=== PATIENT | male | born 1945 | race Caucasian/White ===

== ENCOUNTER → 2016-12-06 | Outpatient (CLI) | payer MEDICARE, OTHER ==
[2016-12-06 11:53] LABS: MEAN CORPUSCULAR HEMOGLOBIN 30.8 pg (27.0-33.0); MEAN CORPUSCULAR HGB CONC 34.5 g/dl (32.0-36.5); MEAN CORPUSCULAR VOLUME 89.5 fl (80.0-96.0); WHITE BLOOD COUNT 5.7 K/mm3 (4.0-10.0)
[2016-12-06 14:18] LABS: ALBUMIN 3.8 GM/DL (3.2-5.2); ALBUMIN/GLOBULIN RATIO 1.27 (1.00-1.93); ALKALINE PHOSPHATASE 77 U/L (45-117); ALT/SGPT 24 U/L (12-78); ANION GAP 4 MEQ/L (8-16); AST/SGOT 10 U/L (15-37); BILIRUBIN,TOTAL 0.6 MG/DL (0.2-1.0); BLOOD UREA NITROGEN 19 MG/DL (7-18); CALCIUM LEVEL 8.6 MG/DL (8.8-10.2); CARBON DIOXIDE LEVEL 29 MEQ/L (21-32); CHLORIDE LEVEL 105 MEQ/L (98-107); CHOLESTEROL LEVEL 184 MG/DL (<200); CREATININE FOR GFR 0.88 MG/DL (0.70-1.30); FREE T4 1.31 NG/DL (0.76-1.46); GLOMERULAR FILTRATION RATE > 60.0 (>42); GLUCOSE, FASTING 95 MG/DL (83-110); POTASSIUM SERUM 4.4 MEQ/L (3.5-5.1); SODIUM LEVEL 138 MEQ/L (136-145); TOTAL PROTEIN 6.8 GM/DL (6.4-8.2); TRIGLYCERIDES LEVEL 132 MG/DL (<150)
== END ==
LOC: M SMT 08:13
PROVIDERS: ATTEND Family Medicine
DX: E03.9 Hypothyroidism, unspecified (principal); I10 Essential (primary) hypertension

== ENCOUNTER → 2017-01-05 | Outpatient (CLI) | payer MEDICARE, OTHER | LOC: M SMT 10:48 | PROVIDERS: ATTEND Physician Assistant Medical | DX: Z85.46 Personal history of malignant neoplasm of prostate (principal) | CPT/HCPCS: 36415; G0103 ==

== ENCOUNTER → 2017-10-06 | Outpatient (CLI) | payer MEDICARE, OTHER ==
[2017-10-06 12:16] LABS: BASO % 0.4 % (0.0-1.0); EOS # 0.1 10^3/uL (0.0-0.50); EOS % 2.2 % (0.0-3.0); HEMATOCRIT 44.9 % (42.0-52.0); HEMOGLOBIN 15.4 g/dl (13.5-17.5); IMMATURE GRANULOCYTE % 0.4 % (0-3.0); LYMPH # 1.8 10^3/uL (1.5-4.5); LYMPH % 33.5 % (24.0-44.0); MEAN CORPUSCULAR HEMOGLOBIN 29.7 pg (27.0-33.0); MEAN CORPUSCULAR HGB CONC 34.3 g/dl (32.0-36.5); MEAN CORPUSCULAR VOLUME 86.7 fl (80.0-96.0); MONO # 0.5 10^3/uL (0.0-0.8); MONO % 9.6 % (0.0-5.0); NEUTROPHILS # 2.9 10^3/uL (1.8-7.7); NEUTROPHILS % 53.9 % (36.0-66.0); PLATELET COUNT, AUTOMATED 242 10^3/uL (150-450); RED BLOOD COUNT 5.18 10^6/uL (4.30-6.10); WHITE BLOOD COUNT 5.4 10^3/uL (4.0-10.0)
[2017-10-06 12:54] LABS: ALBUMIN 3.9 GM/DL (3.2-5.2); ALBUMIN/GLOBULIN RATIO 1.22 (1.00-1.93); ALKALINE PHOSPHATASE 90 U/L (45-117); ALT/SGPT 27 U/L (12-78); ANION GAP 5 MEQ/L (8-16); AST/SGOT 15 U/L (7-37); BILIRUBIN,TOTAL 0.7 MG/DL (0.2-1.0); BLOOD UREA NITROGEN 19 MG/DL (7-18); CALCIUM LEVEL 8.7 MG/DL (8.8-10.2); CARBON DIOXIDE LEVEL 29 MEQ/L (21-32); CHLORIDE LEVEL 108 MEQ/L (98-107); CHOLESTEROL LEVEL 186 MG/DL (<200); CHOLESTEROL RISK RATIO 5.314 (<5); CREATININE FOR GFR 0.91 MG/DL (0.70-1.30); FREE T3 2.9 PG/ML (2.2-4.0); FREE T4 1.15 NG/DL (0.76-1.46); GLOMERULAR FILTRATION RATE > 60.0 (>42); GLUCOSE, FASTING 98 MG/DL (70-100); HDL CHOLESTEROL 35 MG/DL (>40); LDL CHOLESTEROL 131.2 MG/DL (<100); NON-HDL-C 151 MG/DL; POTASSIUM SERUM 4.3 MEQ/L (3.5-5.1); SODIUM LEVEL 142 MEQ/L (136-145); TOTAL PROTEIN 7.1 GM/DL (6.4-8.2); TRIGLYCERIDES LEVEL 99 MG/DL (<150)
== END ==
LOC: M WUC 09:45
DX: E03.9 Hypothyroidism, unspecified (principal); I10 Essential (primary) hypertension
CPT/HCPCS: 84443

== ENCOUNTER → 2018-01-09 | Outpatient (CLI) | payer MEDICARE, OTHER ==
[2018-01-09 17:55] LABS: PROSTATIC SPECIFIC AG MONITOR < 0.01 NG/ML (< 4.0)
== END ==
LOC: M WUC 11:48
DX: Z85.46 Personal history of malignant neoplasm of prostate (principal)
CPT/HCPCS: 84153

== ENCOUNTER → 2018-09-19 | Outpatient (CLI) | payer MEDICARE, OTHER ==
[2018-09-19 12:58] LABS: BASO % 0.7 % (0.0-1.0); EOS % 0.9 % (0.0-3.0); HEMATOCRIT 42.2 % (42.0-52.0); LYMPH # 1.3 10^3/uL (1.5-4.5); LYMPH % 28.7 % (24.0-44.0); MEAN CORPUSCULAR HEMOGLOBIN 29.1 pg (27.0-33.0); MEAN CORPUSCULAR HGB CONC 33.2 g/dl (32.0-36.5); MEAN CORPUSCULAR VOLUME 87.7 fl (80.0-96.0); MONO # 0.6 10^3/uL (0.0-0.8); MONO % 12.2 % (0.0-5.0); NEUTROPHILS # 2.6 10^3/uL (1.8-7.7); NEUTROPHILS % 57.1 % (36.0-66.0); PLATELET COUNT, AUTOMATED 264 10^3/uL (150-450); RED BLOOD COUNT 4.81 10^6/uL (4.30-6.10); WHITE BLOOD COUNT 4.6 10^3/uL (4.0-10.0)
[2018-09-19 13:24] LABS: ALBUMIN 3.3 GM/DL (3.2-5.2); ALT/SGPT 28 U/L (12-78); BILIRUBIN,TOTAL 0.5 MG/DL (0.2-1.0); BLOOD UREA NITROGEN 16 MG/DL (7-18); CALCIUM LEVEL 8.4 MG/DL (8.8-10.2); CARBON DIOXIDE LEVEL 30 MEQ/L (21-32); CHLORIDE LEVEL 105 MEQ/L (98-107); CHOLESTEROL LEVEL 163 MG/DL (<200); CHOLESTEROL RISK RATIO 4.657 (<5); GLOMERULAR FILTRATION RATE > 60.0 (>42); GLUCOSE, FASTING 104 MG/DL (70-100); HDL CHOLESTEROL 35 MG/DL (>40); LDL CHOLESTEROL 99 MG/DL (<100); NON-HDL-C 128 MG/DL; POTASSIUM SERUM 3.9 MEQ/L (3.5-5.1); SODIUM LEVEL 142 MEQ/L (136-145); TOTAL PROTEIN 6.4 GM/DL (6.4-8.2); TRIGLYCERIDES LEVEL 145 MG/DL (<150)
== END ==
LOC: M WUC 08:57
PROVIDERS: ATTEND Family Medicine
DX: I10 Essential (primary) hypertension (principal)

== ENCOUNTER → 2019-01-03 | Outpatient (CLI) | payer MEDICARE, OTHER ==
[~2019-01-03] MED LIST: AMLO5TAB6 PO; FLUT50SP33; IBUP200C25 PO; LOSA100T5 PO; MELA5TAB21 PO; SYNT137T7 PO
== END ==
LOC: M LAB 08:33
PROVIDERS: ATTEND Urology
DX: R97.20 Elevated prostate specific antigen [PSA] (principal)

== ENCOUNTER → 2019-01-12 | Outpatient (CLI) | payer MEDICARE, OTHER ==
[2019-01-12 14:33] LABS: CREATININE FOR GFR 0.84 MG/DL (0.70-1.30); GLOMERULAR FILTRATION RATE > 60.0 (>42)
== END ==
LOC: M LAB 13:42
PROVIDERS: ATTEND Physician Assistant
DX: Z85.46 Personal history of malignant neoplasm of prostate (principal)

== ENCOUNTER → 2019-04-11 | Outpatient (CLI) | payer MEDICARE, OTHER ==
[2019-04-11 12:37] LABS: ALBUMIN 3.8 GM/DL (3.2-5.2); ALT/SGPT 28 U/L (12-78); BILIRUBIN,TOTAL 0.7 MG/DL (0.2-1.0); BLOOD UREA NITROGEN 16 MG/DL (7-18); CALCIUM LEVEL 9.2 MG/DL (8.8-10.2); CARBON DIOXIDE LEVEL 30 MEQ/L (21-32); CHLORIDE LEVEL 108 MEQ/L (98-107); CHOLESTEROL LEVEL 119 MG/DL (<200); CHOLESTEROL RISK RATIO 3.216 (<5); CREATININE FOR GFR 0.76 MG/DL (0.70-1.30); FREE T3 2.8 PG/ML (2.2-4.0); FREE T4 1.09 NG/DL (0.76-1.46); GLOMERULAR FILTRATION RATE > 60.0 (>42); GLUCOSE, FASTING 99 MG/DL (70-100); HDL CHOLESTEROL 37 MG/DL (>40); LDL CHOLESTEROL 64 MG/DL (<100); NON-HDL-C 82 MG/DL; POTASSIUM SERUM 4.2 MEQ/L (3.5-5.1); SODIUM LEVEL 143 MEQ/L (136-145); TOTAL PROTEIN 6.9 GM/DL (6.4-8.2); TRIGLYCERIDES LEVEL 89 MG/DL (<150)
== END ==
LOC: M WUC 10:07
PROVIDERS: ATTEND Family Medicine
DX: E03.9 Hypothyroidism, unspecified (principal); I10 Essential (primary) hypertension

== ENCOUNTER 2019-04-23 08:28 | Day surgery (SDC) | payer MEDICARE, OTHER ==
[~2019-04-23] VITALS: Ht 170.2 cm; Wt 102.5 kg
[~2019-04-23 08:28] MED LIST changes: +LIDOCAINE 2% INJ 100 MG/5 ML SDV (FOR ANES.) As Ordered ONE; +NS 1,000 ML IV ONE
[2019-04-23] MEDS ORDERED: PROPOFOL 200 MG/20 ML VIAL As Ordered ONE (08:50)
--- NOTE | 2019-04-23 10:01 | ROOR ---
Patient Name: Dina Duggan Procedure Date: 04/23/2019 9:42 AM Date of : 1945 Age: 74 Room: [facility] Gender: Male Note Status: Finalized Procedure: Total Colonoscopy to Cecum Indications: Abnormal CT of the GI tract Providers: Tr Salmeron MD Referring MD: Ottoniel Monte MD Requesting Provider: Medicines: Monitored Anesthesia Care Complications: No immediate complications. Procedure: Pre-Anesthesia Assessment: - The heart rate, respiratory rate, oxygen saturations, blood pressure, adequacy of pulmonary ventilation, and response to care were monitored throughout the procedure. The Colonoscope was introduced through the anus and advanced to the cecum, identified by appendiceal orifice and ileocecal valve. The colonoscopy was performed without difficulty. The patient tolerated the procedure well. The quality of the bowel preparation was excellent. Findings: The perianal and digital rectal examinations were normal. Non-bleeding internal hemorrhoids were found during retroflexion. The hemorrhoids were small and Grade I (internal hemorrhoids that do not prolapse). Multiple small and large-mouthed diverticula were found in the recto-sigmoid colon, sigmoid colon, descending colon and transverse colon. The exam was otherwise without abnormality on direct and retroflexion views. Impression: - Non-bleeding internal hemorrhoids. - Diverticulosis in the recto-sigmoid colon, in the sigmoid colon, in the descending colon and in the transverse colon. - The examination was otherwise normal on direct and retroflexion views. - No specimens collected. - The exam was otherwise normal to the cecum. Recommendation: - Patient has a contact number available for emergencies. The signs and symptoms of potential delayed complications were discussed with the patient. Return to normal activities tomorrow. Written discharge instructions were provided to the patient. - High fiber diet. - Discharge patient to home. - Continue present medications. - Repeat colonoscopy for symptoms only. - Return to referring physician. - The findings and recommendations were discussed with the patient's family. Tr Salmeron MD Tr Salmeron MD 04/23/2019 10:00:29 AM Electronically signed by Tr Salmeron MD Number of Addenda: 0 Note Initiated On: 04/23/2019 9:42 AM Estimated Blood Loss: Estimated blood loss: none.
[2019-04-23 10:28] VITALS: BP 142/67
== END 2019-04-23 10:36 | disposition home or self-care (01) ==
LOC: M OPP 08:28
PROVIDERS: ATTEND Internal Medicine Gastroenterology
DX: K64.0 First degree hemorrhoids (principal); K57.30 Diverticulosis of large intestine without perforation or abscess without bleeding; R93.3 Abnormal findings on diagnostic imaging of other parts of digestive tract; Z79.899 Other long term (current) drug therapy

== ENCOUNTER 2019-08-06 10:48 | Inpatient (IN) | payer MEDICARE, OTHER ==
[~2019-08-06] VITALS: Ht 170.2 cm; Wt 104.6 kg
[2019-08-06] MEDS: LEVOTHYROXINE 137MCG TABLET (0.137MG) PO SCH (06:00)
[2019-08-06] MEDS: FLUTICASONE PROP 0.05% NASAL SPRAY 16 GM (FLONASE) NARES SCH ×3 (09:00→22:06)
[~2019-08-06 10:48] MED LIST changes: -LIDOCAINE 2% INJ 100 MG/5 ML SDV (FOR ANES.) As Ordered ONE; -NS 1,000 ML IV ONE
[2019-08-06] MEDS ORDERED: MECL-58 (10:58)
--- NOTE | 2019-08-06 11:46 | REP ---
Portable chest, 11:30 a.m., single AP view with the patient upright: Comparison is 08/16/2010. The lung lassiter are clear and unchanged. There are no focal infiltrates or pleural effusions. Cardiac size is upper normal for portable positioning. The lisa, mediastinum, skeletal structures are unremarkable. There is a small hiatal hernia, unchanged from an abdomen/pelvis CT of 03/06/2013. Impression: No acute cardiopulmonary findings. Electronically Signed by Naga Childress MD 08/06/2019 11:38 A
[2019-08-06 11:51] LABS: INR 1.1; PROTHROMBIN TIME 13.9 SECONDS (11.8-14.0)
[2019-08-06 11:52] LABS: PARTIAL THROMBOPLASTIN TIME 37.3 SECONDS (25.0-38.4)
[2019-08-06 11:59] LABS: BASO % 0.7 % (0.0-1.0); EOS # 0.1 10^3/uL (0.0-0.5); EOS % 1.7 % (0.0-3.0); HEMOGLOBIN 14.3 g/dl (13.5-17.5); LYMPH # 1.1 10^3/uL (1.5-5.0); LYMPH % 37.5 % (24.0-44.0); MEAN CORPUSCULAR HEMOGLOBIN 30.6 pg (27.0-33.0); MEAN CORPUSCULAR HGB CONC 34.9 g/dl (32.0-36.5); MEAN CORPUSCULAR VOLUME 87.8 fl (80.0-96.0); MONO # 0.3 10^3/uL (0.0-0.8); MONO % 10.8 % (0.0-5.0); NEUTROPHILS # 1.5 10^3/uL (1.5-8.5); PLATELET COUNT, AUTOMATED 138 10^3/uL (150-450); RED BLOOD COUNT 4.67 10^6/uL (4.30-6.10)
[2019-08-06 12:27] LABS: ALBUMIN 3.4 GM/DL (3.2-5.2); ALT/SGPT 20 U/L (12-78); BILIRUBIN,DIRECT 0.2 MG/DL (0.0-0.2); BILIRUBIN,TOTAL 0.5 MG/DL (0.2-1.0); BLOOD UREA NITROGEN 17 MG/DL (7-18); CALCIUM LEVEL 8.9 MG/DL (8.8-10.2); CARBON DIOXIDE LEVEL 27 MEQ/L (21-32); CHLORIDE LEVEL 107 MEQ/L (98-107); CK-MB VALUE MASS 1.4 NG/ML (<3.6); CPK CREATINE PHOSPHOKINASE 92 U/L (39-308); CREATININE FOR GFR 0.92 MG/DL (0.70-1.30); FREE T4 0.89 NG/DL (0.76-1.46); GLOMERULAR FILTRATION RATE > 60.0 (>42); GLUCOSE, FASTING 114 MG/DL (70-100); LIPASE 105 U/L (73-393); MB/CK RELATIVE INDEX 1.52 (< OR =4); POTASSIUM SERUM 3.9 MEQ/L (3.5-5.1); SODIUM LEVEL 140 MEQ/L (136-145); TOTAL PROTEIN 6.5 GM/DL (6.4-8.2); TROPONIN I < 0.02 NG/ML (< 0.10)
[2019-08-06] MEDS ORDERED: ASPIRIN 325 MG TAB PO ONE (13:00)
[2019-08-06] MEDS ORDERED: ATORVASTATIN 20 MG TAB PO ONE (13:00)
--- NOTE | 2019-08-06 13:18 | REP ---
CT brain without contrast: History: Persistent dizziness. No comparison CT study. CT findings: Digital preliminary metal moulder radiograph is unremarkable. The bony calvarium is intact. There is mild vascular calcification in the distal internal carotid arteries. Visualized paranasal sinuses are clear. No intraorbital abnormalities appreciated. On soft tissue window settings, there is a focal area of encephalomalacia in the left parietal lobe consistent with a previous cerebral infarct. Encephalomalacia is well-defined. This is compatible with an old cortical infarction. No recent infarct is apparent. No hemorrhage, mass, extra-axial fluid collection, or midline shift is seen. 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 Vascular calcification and minimal diffuse atrophy. Otherwise negative. Electronically Signed by Jae Irvin MD 08/06/2019 05:42 P
[2019-08-06] MEDS ORDERED: ATOR1TAB21 PO (13:33)
[2019-08-06] MEDS ORDERED: IBUPROFEN 200 MG TAB PO PRN (13:45)
[2019-08-06] MEDS ORDERED: NS 1,000 ML IV SCH (14:00)
[2019-08-06 15:06] VITALS: BP 168/79
[2019-08-06] MEDS ORDERED: PROHANCE 279.3MG/ML 15ML VIAL (A9576) As Ordered ONE (15:19)
[2019-08-06] MEDS ORDERED: PROHANCE 279.3MG/ML 5ML VIAL (A9576) As Ordered ONE (15:19)
[2019-08-06] MEDS: amLODIPine 5 MG TAB PO SCH (16:38)
--- NOTE | 2019-08-06 17:15 | REP ---
MRI brain without contrast: History: CVA. Comparison head CT study is from earlier today. Technique: Axial and sagittal imaging planes are utilized for T1 and T2-weighted scans. Sequences include spin-echo, fast spin echo, FLAIR, and diffusion weighted sequences. Findings: No bony calvarial lesion is seen. Craniocervical junction and upper cervical cord are normal in appearance. There is no MR evidence of significant paranasal sinus disease. No intraorbital abnormality is seen. There is no evidence of intracranial hemorrhage. Diffusion weighted scans demonstrate areas of acute appearing restricted diffusion in the right occipital lobe and watershed area of the right posterior parietal lobe. On the left, there is restricted diffusion in a subacute pattern in the left parietal lobe. This corresponds with a low-density area on CT. These areas are consistent with acute and subacute ischemia. No extra-axial fluid collection is seen. No masses observed. No midline shift. Ventricular system is unremarkable. Impression: Multifocal areas of restricted diffusion in a watershed distribution bilaterally affecting the parietal lobes and right occipital lobe. Subacute infarct pattern in the left parietal lobe corresponding to the low density area seen on CT. No hemorrhage is noted. Electronically Signed by Jae Irvin MD 08/06/2019 05:46 P
--- NOTE | 2019-08-06 17:18 | REP ---
MR angiography the brain without contrast: History: CVA. Technique: 3-D [id number] MR angiography of the brain is acquired in the usual fashion and maximal intensity projection images were generated in rotational format about the vertical and horizontal axes. In addition, source axial T1-weighted images are viewed in cine mode. MR angiographic findings: The distal left vertebral artery appears to end in a pica. The right vertebral artery is dominant and widely patent. Basilar artery is unremarkable. There is persistent origin of the right posterior cerebral artery. Posterior cerebral and superior cerebellar arteries are intact and symmetric. The distal internal carotid arteries are unremarkable bilaterally. Anterior and middle cerebral arteries appear intact. No vessel cutoff is seen. There is no evidence of diaz aneurysm or arteriovenous malformation. Impression: Persistent origin right posterior cerebral artery which is a common normal variant. Otherwise unremarkable MRA angiography of the brain. Electronically Signed by Jae Irvin MD 08/06/2019 05:46 P
--- NOTE | 2019-08-06 17:21 | REP ---
MR angiography carotid arteries without and with IV gadolinium: History: CVA. Gadolinium enhancement dose: 25 mL of intravenous ProHance. MR angiographic findings: Pre contrast study shows symmetric common carotid arteries bilaterally. The common carotid artery bifurcations appear widely patent. Postcontrast images show tortuosity of the thoracic aorta and great vessel origins but no evidence of great vessel artery stenosis. There is mild plaquing in the carotid bifurcation on the left with less than 50% category narrowing. The internal carotid arteries are somewhat tortuous bilaterally. The cervical segments of the vertebral arteries are widely patent. The left distal vertebral artery is small compared to the right. Impression: No significant abnormality. Less than 50% atherosclerotic narrowing of the left proximal ICA. Arterial tortuosity. No high-grade stenosis or occlusion seen. Electronically Signed by Jae Irvin MD 08/06/2019 05:46 P
--- NOTE | 2019-08-06 20:14 | HPE ---
DATE OF ADMISSION: 08/06/2019 CHIEF COMPLAINT: Dizziness. HISTORY OF PRESENTING ILLNESS: This is a 74-year-old male with a history of hypertension, never smoked in his life, hypothyroidism, prostate cancer, status post prostatectomy with radiation, presents to the emergency room with complaints of persistent dizziness. Patient has had on and off dizziness since June when he was seen at [facility] and was diagnosed with sinusitis. 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 Patient was very cautious to drive home and called his that he was heading home since he was not feeling well. He described the dizziness as the environment swirling around him. Patient had no gait ataxia, diplopia, blurred vision, or scotomas. [place] and was able to drive home without incident. When he got home, he calmed down. He has a blood pressure machine but did not check it. Around July 31, patient had another episode when he felt very dizzy but did not pass out. He had to be very cautious, and he did not see anyone at that time. No CT of the head was done in June at [facility]. He was given antibiotics, which he completed. Last night, while patient was asleep, he woke up very sweaty in the middle of the night around 3:00 a.m. He rolled over to his and then he felt very dizzy like there was a "little white cloud over me." He laid there, woke up his , and called out to her, "Joselin Olivera." He then got up, walked over to the living room, yelled out again to her and she found him on the sofa sitting and trying to lie down. Patient sat on the couch while the came over. He was very carefully walking. He did not have any slurring of speech, facial asymmetry. He was able to recognize her quickly, he was answering appropriately with no word finding difficulties. He complained of his left arm hurting, which lasted for a few minutes and abated. The patient had noticed for the past week that he was having some inability to read from a distance. He had recently gotten new glasses, but did not think that this was due to this. He otherwise denied any palpitations. He did feel some lightheadedness and dizziness but did not pass out. Did not notice any scotomas. Patient had no upper or lower extremity weakness. Denied any upper or lower extremity paresthesias or numbness. In the ER, he was found to have subacute left parietal infarct, minimal diffuse atrophy, otherwise negative. He was given aspirin 325 mg and one Lipitor 20 mg. MRI of the brain showed subacute bilateral parietal and occipital lobe infarcts, subacute infarct pattern left parietal lobe corresponding to the low density area on the CT. No hemorrhage was seen. On the left has restricted diffusion subacute pattern in the left parietal lobe. Dr. Rey was consulted and recommended a bubble study and hypercoags. A bubble study, carotid MRI shows no significant abnormality, no high-grade stenosis or occlusions. Seen less than 50% atherosclerotic narrowing of the left proximal internal carotid artery (ICA). Hospitalist was called to admit for bilateral parietal lobe CVA and right occipital lobe CVA. PAST MEDICAL HISTORY: Hypertension. Prostate cancer. Hypothyroidism. PAST SURGICAL HISTORY: Prostatectomy with radiation. ALLERGIES: No known drug allergies or food allergies. 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 Lives with his . Patient has 5-6 steps to get into the front door, has a raised ranch about 7 steps. No recreational drug use. No alcohol use. No cigarette use in the past. HOME MEDICATIONS: - fluticasone one spray daily as needed - losartan-hydrochlorothiazide 100-25 one tablet nightly - Norvasc 5 mg daily - atorvastatin 20 mg every evening - ibuprofen 400 mg as needed - levothyroxine 137 mcg daily REVIEW OF SYSTEMS: Per history of the present illness. 12-point system otherwise negative. FAMILY HISTORY: Father with coronary artery disease, myocardial infarction ([place]), age 74. Mother age 75 with a stroke. Sister with a stroke at age of 73 with diabetes. PHYSICAL EXAMINATION: Temperature 98.4, pulse 62, respiratory rate 17, blood pressure 168/79, 100% on room air. Generally, face is symmetric. Tongue is midline. Speech is fluent. Pupils are round, reactive to light and accommodation. Extraocular muscles are intact. Normocephalic, atraumatic. Able to speak in full sentences. No jugular venous distention (JVD), thyromegaly or cervical lymphadenopathy. Lungs are clear to auscultation. No wheezing, rales or rhonchi. Heart: S1, S2, sinus rhythm. Abdomen is soft, nontender, nondistended. Positive bowel sounds. Extremities: No cyanosis, clubbing or pitting edema. Neurologic: Patient's face is symmetric. Tongue is midline. No pronator drift. Some dysmetria on [id number]-[id number] testing. No peripheral visual loss. Patient has motor function 5/5 times four extremities. No sensory disturbance. EKG: Sinus rhythm, ventricular rate of 57, intraventricular conduction delay, nonspecific T-wave changes. [employer] coma scale is 15/15. Mini mental status is 21/30. Patient was unable to do serial 7s, only answered to 93. He knew the month, year, day of the week - saying it was Tuesday, season as spring. He was able to state that he is at [facility] on the 4th floor, [facility]. Unable to do immediate recall of three objects. Patient was unable to spell the word world and said it was drlow. Able to name two objects. Could not recall three objects. Able to name a cup and his wedding band. Able to repeat no ifs, ands or buts. Able to complete a three-stage command, read and correctly follow commands. He was able to write a full sentence and wrote down Birdie went outdoors. Able to copy design of two intersecting shapes, all angles were present, and they were overlapping over one angle. LABORATORY DATA: White count 3, hemoglobin 14, hematocrit 41, platelet count 138, 49% neutrophils. Sedimentation rate was 34. PT 13, PTT 37, INR 1.1. Sodium 140, potassium 3.9, chloride 107, bicarbonate 27, BUN 17, creatinine 0.92, glucose of 114, calcium 8.9, total bilirubin 0.5, direct bilirubin 0.2, AST 13, ALT 20, alkaline phosphatase 91, total CK 92, MB fraction 1.4, troponin less than 0.02, albumin 3.4, total protein 6.5, lipase 105, TSH 5.02, free T4 is 0.89, rheumatoid factor less than 10. CE is pending. MRI of the brain: Bilateral parietal lobe watershed distribution and right occipital lobe restricted diffusion subacute infarct. ASSESSMENT AND PLAN: A 74-year-old male with a history of prostate cancer, status post prostatectomy and radiation, hypertension, hypothyroidism, presents with complaints of dizziness starting July 20, first evaluated at an outlying hospital with complaints of sinus congestion, diagnosed with sinusitis. No CT was ever done at that time. Now presents with bilateral CVA and recurrent complaints of dizziness. ACUTE ISSUE: 1. Subacute bilateral parietal lobe and right occipital lobe CVA, subacute. Patient will be admitted and evaluated with a bubble study, hypercoagulable (hypercoag) workup. Continue on aspirin and Lipitor. Telemetry, rule out atrial fibrillation and ARU evaluation. Lipid panel in the morning. Patient has never smoked cigarettes. Deep vein thrombosis (DVT) prophylaxis with compression stockings for now and Lovenox in the morning. Allow for permissive hypertension. Neurology has been consulted. Neurologic (neuro) checks every 4 hours. 2. Hypertension. Will hold the patient's blood pressure medications for permissive hypertension. May decrease to 120 in the morning. 3. History of prostate cancer. Status post prostatectomy and radiation. No acute complaints. 4. Hypothyroidism. Resume on home dose of Synthroid. 5. Code status is a FULL CODE.
--- NOTE | 2019-08-06 20:39 | ECGEPIP ---
[facility] - ED Test Date: 2019-08-06 Pat Name: JOHN BROOKS Department: Room: [place] [address] Gender: Male Neurology Technologist: jefferson : 1945 Requested By: Jimmy Xavier Order Number: [id number] Reading MD: Kath Cuevas Measurements Intervals [place] Rate: 57 P: 26 MD: 129 QRS: -6 QRSD: 112 T: -12 QT: 407 QTc: 398 Interpretive Statements SINUS BRADYCARDIA WITH OCCASIONAL VENTRICULAR PREMATURE COMPLEXES MODERATE INTRAVENTRICULAR CONDUCTION DELAY NONSPECIFIC T-WAVE ABNORMALITY NO PRIOR Electronically Signed on 08-06-2019 20:39:28 EDT by Kath Cuevas
[2019-08-06] MEDS ORDERED: ATORVASTATIN 20 MG TAB PO SCH ×2 (21:00)
[2019-08-06 22:00] VITALS: BP_SYST 122; BP_SYST 151; BP_SYST 154; BP_SYST 157; BP_DIAS 58; BP_DIAS 75; BP_DIAS 76; BP_DIAS 77
[2019-08-07 06:00] VITALS: BP 160/80
[2019-08-07] MEDS: LEVOTHYROXINE 137MCG TABLET (0.137MG) PO SCH (06:26)
[2019-08-07 07:05] LABS: HEMATOCRIT 39.9 % (42.0-52.0); MEAN CORPUSCULAR HEMOGLOBIN 30.9 pg (27.0-33.0); MEAN CORPUSCULAR HGB CONC 35.1 g/dl (32.0-36.5); MEAN CORPUSCULAR VOLUME 88.1 fl (80.0-96.0); PLATELET COUNT, AUTOMATED 144 10^3/uL (150-450); RED BLOOD COUNT 4.53 10^6/uL (4.30-6.10); WHITE BLOOD COUNT 2.9 10^3/uL (4.0-10.0)
[2019-08-07 07:18] LABS: INR 1.09; PROTHROMBIN TIME 13.8 SECONDS (11.8-14.0)
[2019-08-07 07:19] LABS: PARTIAL THROMBOPLASTIN TIME 40.1 SECONDS (25.0-38.4)
[2019-08-07 07:22] LABS: D-DIMER QUANT 1005.2 ng/ml (<500)
[2019-08-07 07:36] LABS: ALBUMIN 3.3 GM/DL (3.2-5.2); ALT/SGPT 22 U/L (12-78); BILIRUBIN,TOTAL 0.7 MG/DL (0.2-1.0); BLOOD UREA NITROGEN 15 MG/DL (7-18); CALCIUM LEVEL 8.8 MG/DL (8.8-10.2); CARBON DIOXIDE LEVEL 26 MEQ/L (21-32); CHLORIDE LEVEL 109 MEQ/L (98-107); CHOLESTEROL LEVEL 114 MG/DL (<200); CHOLESTEROL RISK RATIO 3.931 (<5); GLOMERULAR FILTRATION RATE > 60.0 (>42); GLUCOSE, FASTING 100 MG/DL (70-100); HDL CHOLESTEROL 29 MG/DL (>40); LDL CHOLESTEROL 60 MG/DL (<100); NON-HDL-C 85 MG/DL; POTASSIUM SERUM 3.9 MEQ/L (3.5-5.1); SODIUM LEVEL 141 MEQ/L (136-145); TOTAL PROTEIN 6.2 GM/DL (6.4-8.2); TRIGLYCERIDES LEVEL 123 MG/DL (<150)
[2019-08-07] MEDS: FLUTICASONE PROP 0.05% NASAL SPRAY 16 GM (FLONASE) NARES SCH ×2 (08:28→20:10)
[2019-08-07] MEDS: amLODIPine 5 MG TAB PO SCH (08:28)
--- NOTE | 2019-08-07 08:39 | CR ---
DATE OF CONSULTATION: 08/07/2019 REFERRING PROVIDER: Lydia Bateman MD REASON FOR CONSULTATION: Stroke. The patient is a 74-year-old male with past medical history significant for hypertension and hypothyroidism presenting with chief complaint of at least a week of symptoms of dizziness. The patient had episodes including left-sided diaphoresis and sweating, shortness breath. The patient was admitted to the hospital. CT scan showed right occipital lobe ischemic stroke. The MRI shows bilateral parietal lobe and right occipital lobe subacute left parietal ischemic strokes. The patient had negative MR angiography of the brain other than persistent origin of the right [employer] artery. MRA was negative for the carotids. The patient had a thyroid-stimulating hormone (TSH) of 5.02. The patient will be admitted for complete stroke workup. At the present time, he does not have any visual field deficits on confrontational testing. The patient denies any weakness or numbness or ataxia at this time. At times, he gets dizzy. It seems he was seen at [facility], was told that he has an ear infection, sent home. The patient has been placed on aspirin 324 mg here in the emergency room (ER). He will benefit by remaining on aspirin 81 mg daily. He has history of prostate cancer and history of hematuria. He is followed by urologist in [place], [place]. The patient will have to watch out for further hematuria, which has not been an issue as of late. The patient is currently on atorvastatin 20 mg daily started by his primary care provider. He patient was told his cholesterol panel was very good. He is not a diabetic, and he is not a smoker. REVIEW OF SYSTEMS: 14-point review of systems obtained and is negative except as per history of present illness (HPI). ALLERGIES: NO KNOWN DRUG ALLERGIES. HOME MEDICATIONS: - Lipitor 20 mg by mouth daily - Synthroid 137 mcg by mouth daily - Norvasc 5 mg by mouth daily SOCIAL HISTORY: The patient denies use of any tobacco, alcohol or illicit drugs. FAMILY HISTORY: Mother with stroke. MEDICAL HISTORY: Hypertension, hypothyroidism, obesity. PAST SURGICAL HISTORY: None. PHYSICAL EXAMINATION: Blood pressure is 168/75, pulse rate 63, respiratory rate is 18, temperature is 98.2 degrees Fahrenheit, oxygenation 97% on room air. The patient is awake, alert, oriented to person, place and time. Speech, language comprehension, and repetition are intact. Current height 5 feet 7 inches, current weight is 106 kg. Extraocular movements are intact in all directions without nystagmus. Sensation V1, V2, V3 is intact to light touch without asymmetry. There is no visual field deficits. Hearing is subjectively equal to finger rub. Tongue is midline. Palate elevates symmetrically. There is no pronator drift. Strength is 5/5 including bilateral deltoids, biceps, triceps, iliopsoas of both 4+. Quadriceps are 5/5, tibialis anterior are 5/5. Romberg testing is negative. Deep tendon reflexes are 1s at the Achilles, 2s at the patellas, 2s in the upper extremities. Sensory is intact to light touch in all four extremities. There is no gross ataxia or dysmetria on exam. ASSESSMENT 74-year-old male with presentation of dizziness persisting for at least a week with findings of bilateral parietal and left occipital strokes thought to be subacute in nature. PLAN: 1. Recommend aspirin 81 mg by mouth daily, continuation of atorvastatin 20 mg by mouth nightly. Recommend echocardiogram with bubble study. Recommend telemetry monitoring. 2. Recommend the patient have an outpatient visual field assessment before resuming driving. 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 3. The patient will need to followup with his urologist if he develops any hematuria while on aspirin. The patient has an upcoming appointment in [place], [place] within this month to see his urologist. History obtained from both the patient the patient's and children.
[2019-08-07] MEDS ORDERED: ASPIRIN 81 MG CHEW TABLET PO ONE (09:00)
[2019-08-07] MEDS ORDERED: ASPIRIN 81 MG CHEW TABLET PO SCH (09:00)
[2019-08-07 10:16] LABS: DRVV SCREEN 79.1 SEC
--- NOTE | 2019-08-07 11:23 | ECHO ---
DATE OF PROCEDURE: 08/06/2019 DATE OF : 1945 AGE: 74 HEIGHT: 67 inches WEIGHT: 233 pounds BODY SURFACE AREA: 2.16 m2 INPATIENT: 4 [facility] room 4227 REFERRING PHYSICIAN: Dr. Lydia Bateman INDICATION: CVA - cardiac source of embolic material query. MEASUREMENTS: 2-D Measurements: RV: 4.4 cm LV: 4.7 cm Septum: 1.4 cm Posterior wall: 1.4 cm Aortic root: 3.6 cm LA: 4.0 cm LVEF: 75% Doppler Measurements: AV: 1.38 m/sec LVOT: 0.95 m/sec LVOT diameter: 2.2 cm MV - E: 96, A: 92, EA ratio: 1 Early mitral deceleration time: 180 ms E prime medial: 6.5, A prime medial: 11, E/E prime lateral: 9 Average E/E prime ratio: 12.4/PCWP 17.2 mmHg PV: 0.85 m/sec Pulmonary artery acceleration time: 109 ms PASP: 35 mmHg IVC: 1.7 cm COMMENTS: Sinus bradycardia without intraventricular conduction disturbance. Somewhat technically challenging in light of the patient's body habitus but diagnostically useful information was still obtained. M-mode and two-dimensional echocardiography was performed with pulsed, continuous wave, color flow and tissue Doppler studies. Moderate concentric left ventricle hypertrophy with hyperkinetic wall motion. Mildly dilated left atrium with grade 2 LV diastolic dysfunction and mildly elevated estimated mean left atrial pressure. Mildly dilated right heart chambers with normal wall motion and Doppler evidence of mild pulmonary hypertension. Normal IVC size and collapse against an elevated central venous pressure at this time. Asymmetrical thickening with reduced motion of the noncoronary cusp of the aortic valve. The other cusps appeared to move and be of normal thickness. No evidence of left ventricle outflow tract obstruction and at most a trace aortic insufficiency. Normal aortic dimensions. Normal appearing and functioning mitral valve. Normal appearing and functioning tricuspid valve. No separate intracardiac mass or pericardial effusion. A preliminary report of this study will be relayed directly to Dr. Bateman.
[2019-08-07 14:00] VITALS: BP 149/70
--- NOTE | 2019-08-07 17:36 | IPN ---
DATE: 08/07/2019 Patient is seen and examined at the bedside. Chart has been reviewed this morning. Patient still complains of dizziness. When he woke this morning in the middle of the night, felt dizzy on the bed. He tried to adjust the elevation of the bed but felt that it got worse and when he tried to move around too much. Prior to the evening he was able to walk back and forth from his bed to the bathroom with a walker without any assistance and appeared to be stable on his feet. Patient had no recurrent episodes of dizziness later on in the morning. Telemetry remains unremarkable. Remains in sinus rhythm. MRI of the brain shows bilateral parietal cerebrovascular accident (CVA) and right occipital CVA. Echocardiogram has no patent foramen ovale (PFO). Per Dr. Dugan, patient has slight fullness in the aortic valve area, which may be concerning for endocarditis. He recommended two sets of blood cultures, which have been obtained. Patient had not had any fevers or chills. He still has occasional sinus congestion but completed a full course of antibiotics as outpatient. PHYSICAL EXAMINATION: Temperature 98.2, pulse 66, respiratory rate 19, blood pressure 160/80, 95% on room air. GENERAL: Patient is awake, alert, oriented to person, place, and time. Able to state the date, 2019 in July, and he is at [facility] in [place]. Face is symmetric. Tongue is midline. No jugular venous distention (JVD). No thyromegaly. LUNGS: Clear to auscultation. No wheezes, rales, or rhonchi. HEART: S1, S2, sinus rhythm. ABDOMEN: Obese, soft, nontender, nondistended. Positive bowel sounds. EXTREMITIES: No clubbing, cyanosis, or pitting edema. NEUROLOGIC: Motor function is 5/5 times four extremities. No sensory disturbance. No dysmetria on lmnhso-lb-hxof testing. Tongue is midline. Laboratory data and imaging studies have been reviewed. ASSESSMENT AND PLAN: A 74-year-old male with a history of hypertension, prostate cancer (CA), status post prostatectomy and radiation, hypertension, hypothyroidism, presented with persistent dizziness, which all started July 20 and again July 31. Finally admitted August 05 for bilateral subacute parietal lobe cerebrovascular accident (CVA). IMPRESSION: 1. Subacute bilateral parietal lobe and right occipital lobe CVA. Patient has had a full workup. No significant carotid stenosis. Echo shows no patent foramen ovale (PFO). Patient is on aspirin 81 and Lipitor 20 at bedtime. 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 2. Currently hypertension. May resume on home medications at lower doses and monitor patient's response. 3. History of prostate CA, status post prostatectomy and radiation. 4. Hypothyroidism, on Synthroid. 5. Code status. Full code. Defer to neurology regarding further workup and discharge plans.
[2019-08-07] MEDS ORDERED: ATORVASTATIN 20 MG TAB PO SCH (21:00)
[2019-08-07 22:00] VITALS: BP 147/68
[2019-08-08] MEDS: LEVOTHYROXINE 137MCG TABLET (0.137MG) PO SCH (05:34)
[2019-08-08 06:00] VITALS: BP 148/68
[2019-08-08 07:04] LABS: HEMOGLOBIN 13.7 g/dl (13.5-17.5); MEAN CORPUSCULAR HEMOGLOBIN 30.1 pg (27.0-33.0); MEAN CORPUSCULAR HGB CONC 34.3 g/dl (32.0-36.5); MEAN CORPUSCULAR VOLUME 87.9 fl (80.0-96.0); PLATELET COUNT, AUTOMATED 165 10^3/uL (150-450); RED BLOOD COUNT 4.55 10^6/uL (4.30-6.10); WHITE BLOOD COUNT 2.6 10^3/uL (4.0-10.0)
[2019-08-08 07:21] LABS: BLOOD UREA NITROGEN 15 MG/DL (7-18); CALCIUM LEVEL 8.5 MG/DL (8.8-10.2); CARBON DIOXIDE LEVEL 28 MEQ/L (21-32); CHLORIDE LEVEL 107 MEQ/L (98-107); CREATININE FOR GFR 0.87 MG/DL (0.70-1.30); GLOMERULAR FILTRATION RATE > 60.0 (>42); GLUCOSE, FASTING 116 MG/DL (70-100); POTASSIUM SERUM 4.1 MEQ/L (3.5-5.1); SODIUM LEVEL 141 MEQ/L (136-145)
[2019-08-08] MEDS ORDERED: ASPIRIN 81 MG CHEW TABLET PO SCH (09:00)
[2019-08-08] MEDS ORDERED: ASPI81CH8 PO (10:03)
[2019-08-08 10:07] VITALS: BP 149/67
[2019-08-08] MEDS: amLODIPine 5 MG TAB PO SCH (10:07)
[2019-08-08] MEDS: FLUTICASONE PROP 0.05% NASAL SPRAY 16 GM (FLONASE) NARES SCH (10:08)
--- NOTE | 2019-08-08 10:55 | IPNPDOC ---
Subjective Date Seen The patient was seen on 08/08/19. Subjective Chief Complaint/HPI Dina is up walking in the hallway with walker. He is ambulating steady w/ standby assist only, but continues to experience vertigo and some short-term memory loss per Mrs Urban. Family members are at the bedside and are upset that the neurologist had not seen him yesterday, and want an etiology for his stroke. They want him transferred to [facility], but I've indicated to them that there is no need for hospital to hospital transfer and that his stroke workup is nearly complete with the exception of a RHONDA. They have declined RHONDA and wish to be discharged so they can travel to [facility] and acquire a second opinion. Objective Physical Examination General Exam: Positive: Alert, Cooperative, No Acute Distress Eye Exam: Positive: Conjunctiva & lids normal; Negative: Sclera icteric ENT Exam: Positive: Atraumatic, Mucous membr. moist/pink Chest Exam: Positive: Clear to auscultation Heart Exam: Positive: Rate Normal Telemetry: Positive: No significant arrhythmia Extremity Exam: Negative: Clubbing, Cyanosis, Edema Neuro Exam: Positive: Normal Gait, Normal Speech, Normal Tone Psych Exam: Positive: Mental status NL, Mood NL Assessment /Plan Assessment # Subacute bilateral parietal lobe and right occipital lobe CVA. # Hypertension # Hyperlipidemia - declines RHONDA with preference to discharged so he can seek a second opinion at [facility] - continue asa + atorvastatin - LDL < 70 - hypercoagulable panel pending - will need RHONDA as outpatient - outpatient PT/OT for vestibular therapy - Ophthalmology referral as outpatient for visual field testing - F/u with neurology in 2 weeks - BP controlled - Echo, Carotid, and MRA reviewed and all are reported as normal - f/u with PCP in 1 week - resume norvasc 5 mg daily, # Hypothyroidism - continue Synthroid. # Leukopenia - blood cultures are negative to date, I contacted microbiology lab - procalcitonin is pending - I have low suspicion for acute infection - will need f/u with PCP Plan/VTE VTE Prophylaxis Ordered?: Yes VTE Exclusion Mechanical Proph: N/A:VTE Prophy Ordered VTE Exclusion Pharmacological: Other (ambulatory) VS, I&O, 24H, Fishbone Vital Signs/I&O Vital Signs Date Time Temp Pulse Resp B/P (MAP) Pulse Ox O2 Delivery O2 Flow Rate FiO2 08/08/19 10:07 70 149/67 08/08/19 06:00 98.0 18 97 08/07/19 14:00 Room Air I&O- Last 24 Hours up to 6 AM 08/08/19 06:00 Intake Total 1431 ml Output Total 1575 ml Balance -144 ml Laboratory Data 24H LABS Laboratory Tests 2 08/07/19 11:33: Erythrocyte Sedimentation Rate 36H, C-Reactive Protein, Quantitative < 0.30 08/08/19 06:23: Nucleated Red Blood Cells % (auto) 0.0, Anion Gap 6L, Glomerular Filtration Rate > 60.0, Calcium Level 8.5L CBC/BMP Laboratory Tests 08/08/19 06:23 Microbiology Microbiology 08/07/19 Blood Culture, Received Pending 08/07/19 Blood Culture, Received Pending SANDIP BRUNNER MD Aug 08, 2019 10:42
[2019-08-08 14:07] LABS: ANTINUCLEAR ANTIBODIES DIRECT Negative (Negative)
[2019-08-11 00:11] LABS: HEXAGONAL PHASE PHOSPHOLIPID 42 sec (0-11)
== END 2019-08-08 11:11 | disposition home or self-care (01) | DRG 66 ==
LOC: M ED 10:48 → M ED INP 13:31 → ENRESERV 14:14 → M MSPAV 15:05
PROVIDERS: ADMIT General Practice; ATTEND Internal Medicine
DX: I63.59 Cerebral infarction due to unspecified occlusion or stenosis of other cerebral artery (principal); R42 Dizziness and giddiness; I10 Essential (primary) hypertension; E03.9 Hypothyroidism, unspecified; Z85.46 Personal history of malignant neoplasm of prostate; Z92.3 Personal history of irradiation; Z79.899 Other long term (current) drug therapy; D72.819 Decreased white blood cell count, unspecified

== ENCOUNTER → 2019-11-21 | Outpatient (REF) | payer MEDICARE, OTHER ==
[~2019-11-21] MED LIST changes: +AMLO1TAB24 PO; -AMLO5TAB6 PO; +ASPI81CH8 PO; +ATOR1TAB21 PO; +MECL-58
[2019-11-21 15:24] LABS: HEMATOCRIT 37.5 % (42.0-52.0); HEMOGLOBIN 12.9 g/dl (13.5-17.5); MEAN CORPUSCULAR HEMOGLOBIN 30.7 pg (27.0-33.0); MEAN CORPUSCULAR HGB CONC 34.4 g/dl (32.0-36.5); MEAN CORPUSCULAR VOLUME 89.3 fl (80.0-96.0); PLATELET COUNT, AUTOMATED 205 10^3/uL (150-450); WHITE BLOOD COUNT 2.6 10^3/uL (4.0-10.0)
[2019-11-21 15:34] LABS: BLOOD UREA NITROGEN 26 MG/DL (7-18); CARBON DIOXIDE LEVEL 27 MEQ/L (21-32); CHLORIDE LEVEL 106 MEQ/L (98-107); CREATININE FOR GFR 1.08 MG/DL (0.70-1.30); GLOMERULAR FILTRATION RATE > 60.0 (>42); GLUCOSE, FASTING 96 MG/DL (70-100); POTASSIUM SERUM 3.5 MEQ/L (3.5-5.1); SODIUM LEVEL 142 MEQ/L (136-145)
== END ==
LOC: M LABDRAWC 11:23
PROVIDERS: ATTEND Nurse Practitioner
DX: I25.119 Atherosclerotic heart disease of native coronary artery with unspecified angina pectoris (principal); Z79.02 Long term (current) use of antithrombotics/antiplatelets

== ENCOUNTER → 2019-11-27 | Outpatient (CLI) | payer MEDICARE, OTHER ==
[~2019-11-27] MED LIST changes: -AMLO1TAB24 PO; +AMLO5TAB6 PO
[2019-11-27 11:19] LABS: BASO % 0.9 % (0.0-1.0); EOS % 0.9 % (0.0-3.0); HEMATOCRIT 36.1 % (42.0-52.0); HEMOGLOBIN 12.4 g/dl (13.5-17.5); LYMPH # 0.9 10^3/uL (1.5-5.0); LYMPH % 42.5 % (24.0-44.0); MEAN CORPUSCULAR HEMOGLOBIN 30.3 pg (27.0-33.0); MEAN CORPUSCULAR HGB CONC 34.3 g/dl (32.0-36.5); MEAN CORPUSCULAR VOLUME 88.3 fl (80.0-96.0); MONO # 0.4 10^3/uL (0.0-0.8); MONO % 16.4 % (0.0-5.0); NEUTROPHILS % 39.3 % (36.0-66.0); PLATELET COUNT, AUTOMATED 230 10^3/uL (150-450); RED BLOOD COUNT 4.09 10^6/uL (4.30-6.10); WHITE BLOOD COUNT 2.2 10^3/uL (4.0-10.0)
[2019-11-27 12:04] LABS: NEUTROPHILS # 0.9 10^3/uL (1.5-8.5)
== END ==
LOC: M LAB 10:46
PROVIDERS: ATTEND Family Medicine
DX: D72.819 Decreased white blood cell count, unspecified (principal); D64.9 Anemia, unspecified

== ENCOUNTER → 2019-12-24 | Outpatient (REF) | payer MEDICARE, OTHER ==
[~2019-12-24] MED LIST changes: +AMLO1TAB24 PO; -AMLO5TAB6 PO
== END ==
LOC: M WUC 10:03
PROVIDERS: ATTEND Internal Medicine Cardiovascular Disease
DX: E78.5 Hyperlipidemia, unspecified (principal); I25.119 Atherosclerotic heart disease of native coronary artery with unspecified angina pectoris; Z86.73 Personal history of transient ischemic attack (TIA), and cerebral infarction without residual deficits; Z79.899 Other long term (current) drug therapy

== ENCOUNTER → 2020-01-15 | Outpatient (REF) | payer MEDICARE, OTHER ==
[2020-03-03 21:58] LABS: EOS % 1.4 % (0.0-3.0); HEMATOCRIT 33.9 % (42.0-52.0); LYMPH # 0.9 10^3/uL (1.5-5.0); LYMPH % 44.8 % (24.0-44.0); MEAN CORPUSCULAR HEMOGLOBIN 29.9 pg (27.0-33.0); MEAN CORPUSCULAR HGB CONC 32.4 g/dl (32.0-36.5); MEAN CORPUSCULAR VOLUME 92.1 fl (80.0-96.0); MONO # 0.5 10^3/uL (0.0-0.8); MONO % 21.4 % (0.0-5.0); NEUTROPHILS % 31.4 % (36.0-66.0); PLATELET COUNT, AUTOMATED 229 10^3/uL (150-450); RED BLOOD COUNT 3.68 10^6/uL (4.30-6.10); WHITE BLOOD COUNT 2.1 10^3/uL (4.0-10.0)
[2020-03-03 22:03] LABS: NEUTROPHILS # 0.7 10^3/uL (1.5-8.5)
== END ==
LOC: M WUC 16:00
PROVIDERS: ATTEND Internal Medicine Hematology & Oncology
DX: D72.819 Decreased white blood cell count, unspecified (principal); D64.9 Anemia, unspecified

== ENCOUNTER → 2020-01-18 | Outpatient (CLI) | payer MEDICARE, OTHER ==
[2020-01-18 19:53] LABS: APPEARANCE, URINE CLOUDY (CLEAR); BACTERIA, URINE AUTO NEGATIVE (NEGATIVE); BILIRUBIN, URINE AUTO NEGATIVE (NEGATIVE); BLOOD, URINE BLOOD 3+ (NEGATIVE); COLOR, URINE RED (YELLOW); GLUCOSE, URINE (UA) AUTO NEGATIVE (NEGATIVE); KETONE, URINE AUTO NEGATIVE (NEGATIVE); LEUKOCYTE ESTERASE, URINE AUTO NEGATIVE (NEGATIVE); NITRITE, URINE AUTO NEGATIVE (NEGATIVE); PROTEIN, URINE AUTO 2+ mg/dL (NEGATIVE); RBC, URINE AUTO TNTC /HPF (0-3); SPECIFIC GRAVITY URINE AUTO 1.012 (1.002-1.035); SQUAMOUS EPITHELIAL CELL UR AU 3 /HPF (0-6); WBC, URINE AUTO TNTC /HPF (0-3)
== END ==
LOC: M WUC 15:58
PROVIDERS: ATTEND Physician Assistant
DX: R31.0 Gross hematuria (principal)

== ENCOUNTER → 2020-03-05 | Outpatient (CLI) | payer MEDICARE, OTHER | LOC: M LABSMTC 10:45 | PROVIDERS: ATTEND Internal Medicine Hematology & Oncology | DX: Z20.828 Contact with and (suspected) exposure to other viral communicable diseases (principal) | CPT/HCPCS: C9803; U0003 ==

== ENCOUNTER → 2020-07-14 | Outpatient (CLI) | payer MEDICARE, OTHER ==
[2020-07-14 10:59] LABS: HEMATOCRIT 38.6 % (42.0-52.0); HEMOGLOBIN 12.8 g/dl (13.5-17.5); MEAN CORPUSCULAR HEMOGLOBIN 30.2 pg (27.0-33.0); MEAN CORPUSCULAR HGB CONC 33.2 g/dl (32.0-36.5); PLATELET COUNT, AUTOMATED 189 10^3/uL (150-450); RED BLOOD COUNT 4.24 10^6/uL (4.30-6.10); WHITE BLOOD COUNT 2.9 10^3/uL (4.0-10.0)
[2020-07-14 11:38] LABS: ALBUMIN 3.5 GM/DL (3.2-5.2); ALT/SGPT 38 U/L (12-78); BILIRUBIN,TOTAL 0.6 MG/DL (0.2-1.0); BLOOD UREA NITROGEN 25 MG/DL (7-18); CALCIUM LEVEL 8.9 MG/DL (8.8-10.2); CARBON DIOXIDE LEVEL 29 MEQ/L (21-32); CHLORIDE LEVEL 107 MEQ/L (98-107); CHOLESTEROL LEVEL 105 MG/DL (<200); CHOLESTEROL RISK RATIO 2.692 (<5); CREATININE FOR GFR 0.81 MG/DL (0.70-1.30); FREE T3 2.4 PG/ML (2.2-4.0); FREE T4 1.24 NG/DL (0.76-1.46); GLOMERULAR FILTRATION RATE > 60.0 (>42); GLUCOSE, FASTING 90 MG/DL (70-100); HDL CHOLESTEROL 39 MG/DL (>40); LDL CHOLESTEROL 55 MG/DL (<100); NON-HDL-C 66 MG/DL; POTASSIUM SERUM 4.2 MEQ/L (3.5-5.1); SODIUM LEVEL 141 MEQ/L (136-145); THYROID STIMULATING HORMONE 0.595 uIU/ML (0.358-3.740); TOTAL PROTEIN 6.5 GM/DL (6.4-8.2); TRIGLYCERIDES LEVEL 57 MG/DL (<150)
== END ==
LOC: M LAB 09:42
PROVIDERS: ATTEND Family Medicine
DX: E03.9 Hypothyroidism, unspecified (principal); I10 Essential (primary) hypertension; D72.819 Decreased white blood cell count, unspecified

== ENCOUNTER → 2020-12-16 | Outpatient (REF) | payer MEDICARE, OTHER | LOC: M LABDRAWC 15:58 | PROVIDERS: ATTEND Physician Assistant | DX: Z85.46 Personal history of malignant neoplasm of prostate (principal) ==

== ENCOUNTER → 2021-01-08 | Outpatient (CLI) | payer MEDICARE, OTHER ==
[2021-01-08 11:43] LABS: ALBUMIN 3.5 GM/DL (3.2-5.2); BILIRUBIN,DIRECT 0.2 MG/DL (0.0-0.2); BILIRUBIN,TOTAL 0.7 MG/DL (0.2-1.0); CHOLESTEROL RISK RATIO 2.7 (<5); TOTAL PROTEIN 6.5 GM/DL (6.4-8.2)
== END ==
LOC: M WUC 08:27
DX: E78.5 Hyperlipidemia, unspecified (principal); I25.119 Atherosclerotic heart disease of native coronary artery with unspecified angina pectoris; Z86.73 Personal history of transient ischemic attack (TIA), and cerebral infarction without residual deficits; Z79.899 Other long term (current) drug therapy

== ENCOUNTER → 2021-08-27 | Outpatient (CLI) | payer MEDICARE, OTHER ==
[2021-08-27 13:31] LABS: BLOOD UREA NITROGEN 20 MG/DL (7-18); CALCIUM LEVEL 9.1 MG/DL (8.8-10.2); CARBON DIOXIDE LEVEL 26 MEQ/L (21-32); CHLORIDE LEVEL 106 MEQ/L (98-107); CREATININE FOR GFR 0.85 MG/DL (0.70-1.30); GLOMERULAR FILTRATION RATE > 60.0 (>42); GLUCOSE, FASTING 91 MG/DL (70-100); POTASSIUM SERUM 4.1 MEQ/L (3.5-5.1); SODIUM LEVEL 138 MEQ/L (136-145)
== END ==
LOC: M WUC 10:02
PROVIDERS: ATTEND Internal Medicine Cardiovascular Disease
DX: R00.1 Bradycardia, unspecified (principal); I10 Essential (primary) hypertension; Z79.82 Long term (current) use of aspirin

== ENCOUNTER → 2021-08-27 | Outpatient (CLI) | payer MEDICARE, OTHER ==
[2021-08-27 12:46] LABS: HEMATOCRIT 42.9 % (42.0-52.0); HEMOGLOBIN 14.8 g/dl (13.5-17.5); MEAN CORPUSCULAR HEMOGLOBIN 30.1 pg (27.0-33.0); MEAN CORPUSCULAR HGB CONC 34.5 g/dl (32.0-36.5); MEAN CORPUSCULAR VOLUME 87.4 fl (80.0-96.0); PLATELET COUNT, AUTOMATED 244 10^3/uL (150-450); RED BLOOD COUNT 4.91 10^6/uL (4.30-6.10)
[2021-08-27 14:10] LABS: ALBUMIN 3.8 GM/DL (3.2-5.2); ALT/SGPT 43 U/L (12-78); BILIRUBIN,TOTAL 0.9 MG/DL (0.2-1.0); BLOOD UREA NITROGEN 20 MG/DL (7-18); CALCIUM LEVEL 9.1 MG/DL (8.8-10.2); CARBON DIOXIDE LEVEL 26 MEQ/L (21-32); CHLORIDE LEVEL 105 MEQ/L (98-107); CHOLESTEROL LEVEL 115 MG/DL (<200); CHOLESTEROL RISK RATIO 3.285 (<5); CREATININE FOR GFR 0.82 MG/DL (0.70-1.30); FREE T4 1.12 NG/DL (0.76-1.46); GLOMERULAR FILTRATION RATE > 60.0 (>42); GLUCOSE, FASTING 85 MG/DL (70-100); HDL CHOLESTEROL 35 MG/DL (>40); LDL CHOLESTEROL 67 MG/DL (<100); NON-HDL-C 80 MG/DL; PROSTATIC SPECIFIC AG MONITOR < 0.01 NG/ML (< 4.00); SODIUM LEVEL 138 MEQ/L (136-145); TOTAL PROTEIN 7.2 GM/DL (6.4-8.2); TRIGLYCERIDES LEVEL 66 MG/DL (<150)
[2021-08-27 16:12] LABS: FREE T3 2.6 PG/ML (2.2-4.0)
== END ==
LOC: M WUC 10:05
PROVIDERS: ATTEND Family Medicine
DX: C61 Malignant neoplasm of prostate (principal); E03.9 Hypothyroidism, unspecified; I10 Essential (primary) hypertension; R00.1 Bradycardia, unspecified; Z79.82 Long term (current) use of aspirin

== ENCOUNTER → 2021-09-21 | Outpatient (CLI) | payer MEDICARE, OTHER ==
[2021-09-21 13:08] LABS: BLOOD UREA NITROGEN 22 MG/DL (7-18); CALCIUM LEVEL 9.7 MG/DL (8.8-10.2); CARBON DIOXIDE LEVEL 24 MEQ/L (21-32); CHLORIDE LEVEL 108 MEQ/L (98-107); CREATININE FOR GFR 0.89 MG/DL (0.70-1.30); GLOMERULAR FILTRATION RATE > 60.0 (>42); GLUCOSE, FASTING 168 MG/DL (70-100); POTASSIUM SERUM 3.8 MEQ/L (3.5-5.1); SODIUM LEVEL 141 MEQ/L (136-145)
== END ==
LOC: M WUC 09:50
DX: R00.1 Bradycardia, unspecified (principal); I10 Essential (primary) hypertension; Z79.899 Other long term (current) drug therapy

== ENCOUNTER → 2021-11-19 | Outpatient (CLI) | payer MEDICARE, OTHER ==
[2021-11-19 16:44] LABS: HEMOGLOBIN 14.3 g/dl (13.5-17.5); LYMPH % 33.6 % (24.0-44.0); MEAN CORPUSCULAR VOLUME 88.1 fl (80.0-96.0); MONO # 0.3 10^3/uL (0.0-0.8); MONO % 9.7 % (2.0-8.0); NEUTROPHILS # 1.6 10^3/uL (1.5-8.5); NEUTROPHILS % 54.4 % (36.0-66.0); PLATELET COUNT, AUTOMATED 221 10^3/uL (150-450); RED BLOOD COUNT 4.77 10^6/uL (4.30-6.10)
== END ==
LOC: M WUC 11:03
PROVIDERS: ATTEND Internal Medicine Hematology & Oncology
DX: D72.819 Decreased white blood cell count, unspecified (principal); D75.81 Myelofibrosis

== ENCOUNTER → 2021-12-28 | Outpatient (CLI) | payer MEDICARE, OTHER | LOC: M WUC 11:26 | PROVIDERS: ATTEND Physician Assistant | DX: Z85.46 Personal history of malignant neoplasm of prostate (principal) ==

== ENCOUNTER → 2022-06-07 | Outpatient (CLI) | payer MEDICARE, OTHER ==
[2022-06-07 13:52] LABS: BLOOD UREA NITROGEN 23 MG/DL (9-23); CALCIUM LEVEL 9.2 MG/DL (8.3-10.6); CARBON DIOXIDE LEVEL 27 MMOL/L (20-31); CHLORIDE LEVEL 105 MMOL/L (98-107); CREATININE FOR GFR 0.94 MG/DL (0.70-1.30); GLOMERULAR FILTRATION RATE > 60.0 (>42); GLUCOSE, FASTING 103 MG/DL (74-106); POTASSIUM SERUM 4.4 MMOL/L (3.5-5.1); SODIUM LEVEL 139 MMOL/L (136-145)
== END ==
LOC: M WUC 09:05
PROVIDERS: ATTEND Internal Medicine Cardiovascular Disease
DX: E78.5 Hyperlipidemia, unspecified (principal)

== ENCOUNTER → 2022-06-07 | Outpatient (CLI) | payer MEDICARE, OTHER ==
[2022-06-07 13:56] LABS: FREE T3 3.3 PG/ML (2.3-4.2); THYROID STIMULATING HORMONE 2.101 uIU/ML (0.55-4.78)
[2022-06-07 13:58] LABS: CHOLESTEROL RISK RATIO 3.07 (<5); FREE T4 1.2 NG/DL (0.89-1.76); HDL CHOLESTEROL 34.8 MG/DL (>40); LDL CHOLESTEROL 58.6 MG/DL (<100)
== END ==
LOC: M WUC 09:02
PROVIDERS: ATTEND Family Medicine
DX: E03.9 Hypothyroidism, unspecified (principal); E78.5 Hyperlipidemia, unspecified

== ENCOUNTER → 2022-12-12 | Outpatient (CLI) | payer MEDICARE, OTHER ==
[2022-12-12 11:26] LABS: CHOLESTEROL RISK RATIO 2.32 (<5); HDL CHOLESTEROL 36.6 MG/DL (>40); LDL CHOLESTEROL 35.8 MG/DL (<100); NON-HDL-C 48.4 MG/DL
== END ==
LOC: M LAB 10:06
PROVIDERS: ATTEND Internal Medicine Cardiovascular Disease
DX: E78.5 Hyperlipidemia, unspecified (principal)

== ENCOUNTER → 2022-12-12 | Outpatient (CLI) | payer MEDICARE, OTHER ==
[2022-12-12 10:50] LABS: HEMATOCRIT 37.3 % (42.0-52.0); HEMOGLOBIN 12.7 g/dl (13.5-17.5); LYMPH # 0.9 10^3/uL (1.5-5.0); LYMPH % 42.1 % (24.0-44.0); MEAN CORPUSCULAR HEMOGLOBIN 30.4 pg (27.0-33.0); MEAN CORPUSCULAR VOLUME 89.2 fl (80.0-96.0); MONO # 0.4 10^3/uL (0.0-0.8); MONO % 17.2 % (2.0-8.0); NEUTROPHILS % 38.7 % (36.0-66.0); PLATELET COUNT, AUTOMATED 224 10^3/uL (150-450); RED BLOOD COUNT 4.18 10^6/uL (4.30-6.10); WHITE BLOOD COUNT 2.1 10^3/uL (4.0-10.0)
[2022-12-12 11:07] LABS: NEUTROPHILS # 0.8 10^3/uL (1.5-8.5)
[2022-12-12 11:44] LABS: ALBUMIN 3.6 G/DL (3.2-5.2); ALKALINE PHOSPHATASE 115 U/L (46-116); ALT/SGPT 22 U/L (7.0-40); AST/SGOT 15 U/L (<34); BILIRUBIN,TOTAL 0.7 MG/DL (0.3-1.2); BLOOD UREA NITROGEN 26 MG/DL (9-23); CARBON DIOXIDE LEVEL 24 MMOL/L (20-31); CHLORIDE LEVEL 106 MMOL/L (98-107); CHOLESTEROL LEVEL 85 MG/DL (<200); CHOLESTEROL RISK RATIO 3.02 (<5); FREE T3 3.1 PG/ML (2.3-4.2); FREE T4 1.25 NG/DL (0.89-1.76); GLOMERULAR FILTRATION RATE > 60.0 (>42); GLUCOSE, FASTING 100 MG/DL (74-106); HDL CHOLESTEROL 28.1 MG/DL (>40); LDL CHOLESTEROL 44.5 MG/DL (<100); NON-HDL-C 56.9 MG/DL; POTASSIUM SERUM 4.4 MMOL/L (3.5-5.1); SODIUM LEVEL 138 MMOL/L (136-145); THYROID STIMULATING HORMONE 1.451 uIU/ML (0.55-4.78); TOTAL PROTEIN 6.8 G/DL (5.7-8.2); TRIGLYCERIDES LEVEL 62 MG/DL (<150)
== END ==
LOC: M LAB 10:09
PROVIDERS: ATTEND Family Medicine
DX: E03.9 Hypothyroidism, unspecified (principal); I10 Essential (primary) hypertension; E78.5 Hyperlipidemia, unspecified; Z79.899 Other long term (current) drug therapy; Z82.49 Family history of ischemic heart disease and other diseases of the circulatory system; E78.00 Pure hypercholesterolemia, unspecified

== ENCOUNTER → 2023-01-10 | Outpatient (CLI) | payer MEDICARE, OTHER | LOC: M WUC 12:38 | PROVIDERS: ATTEND Physician Assistant | DX: Z85.46 Personal history of malignant neoplasm of prostate (principal) ==

== ENCOUNTER → 2023-01-26 | Outpatient (CLI) | payer MEDICARE, OTHER | LOC: M RAD 12:01 | PROVIDERS: ATTEND Internal Medicine Cardiovascular Disease | DX: I10 Essential (primary) hypertension (principal); I25.10 Atherosclerotic heart disease of native coronary artery without angina pectoris ==

== ENCOUNTER → 2023-03-10 | Outpatient (CLI) | payer MEDICARE, OTHER | LOC: M RAD 13:34 | PROVIDERS: ATTEND Internal Medicine | DX: R06.02 Shortness of breath (principal) ==

== ENCOUNTER → 2023-04-20 | Outpatient (CLI) | payer MEDICARE, OTHER | LOC: M WUC 11:00 | PROVIDERS: ATTEND Internal Medicine | DX: Z85.46 Personal history of malignant neoplasm of prostate (principal) ==

== ENCOUNTER 2023-10-31 11:51 | Day surgery (SDC) | payer MEDICARE, OTHER ==
[~2023-10-31] VITALS: Ht 170.2 cm; Wt 96.2 kg
[~2023-10-31 11:51] MED LIST changes: +FERR325T81 PO
[2023-10-31] MEDS: NS 1,000 ML IV ONE (12:51)
[2023-10-31] MEDS ORDERED: propofoL 200 MG/20 ML VIAL As Ordered ONE (13:35)
[2023-10-31] MEDS ORDERED: LIDOCAINE 2% 100MG/5ML SDV (FOR ANES.) As Ordered ONE (14:00)
[2023-10-31 15:00] VITALS: BP 140/67; TEMP 97; O2SAT 96
== END 2023-10-31 15:07 | disposition home or self-care (01) ==
LOC: M OPP 11:51
PROVIDERS: ATTEND Internal Medicine Gastroenterology
DX: K64.0 First degree hemorrhoids (principal); K57.30 Diverticulosis of large intestine without perforation or abscess without bleeding; D50.9 Iron deficiency anemia, unspecified; K44.9 Diaphragmatic hernia without obstruction or gangrene; K31.89 Other diseases of stomach and duodenum; K31.7 Polyp of stomach and duodenum; I25.10 Atherosclerotic heart disease of native coronary artery without angina pectoris; Z86.73 Personal history of transient ischemic attack (TIA), and cerebral infarction without residual deficits; Z86.79 Personal history of other diseases of the circulatory system; Z95.0 Presence of cardiac pacemaker; Z79.02 Long term (current) use of antithrombotics/antiplatelets; Z79.1 Long term (current) use of non-steroidal anti-inflammatories (NSAID); Z79.82 Long term (current) use of aspirin; Z79.890 Hormone replacement therapy; Z79.899 Other long term (current) drug therapy

== ENCOUNTER → 2024-01-13 | Outpatient (CLI) | payer MEDICARE, OTHER ==
[2024-01-13 10:37] LABS: FREE T4 1.33 NG/DL (0.89-1.76)
[2024-01-13 10:38] LABS: THYROID STIMULATING HORMONE 0.768 uIU/ML (0.55-4.78)
== END ==
LOC: M LAB 09:03
PROVIDERS: ATTEND Family Medicine
DX: E03.9 Hypothyroidism, unspecified (principal); D72.819 Decreased white blood cell count, unspecified

== ENCOUNTER → 2024-01-13 | Outpatient (CLI) | payer MEDICARE, OTHER | LOC: M RAD 09:01 | PROVIDERS: ATTEND Internal Medicine Hematology & Oncology | DX: D72.819 Decreased white blood cell count, unspecified (principal) ==

== ENCOUNTER → 2024-02-20 | Outpatient (CLI) | payer MEDICARE, OTHER ==
[2024-02-20 13:23] LABS: BASO % 1.3 % (0.0-1.0); EOS % 0.9 % (0.0-3.0); HEMATOCRIT 36.5 % (42.0-52.0); HEMOGLOBIN 12.4 g/dl (13.5-17.5); LYMPH # 0.7 10^3/uL (1.5-5.0); LYMPH % 32.5 % (24.0-44.0); MEAN CORPUSCULAR HEMOGLOBIN 31.7 pg (27.0-33.0); MEAN CORPUSCULAR VOLUME 93.4 fl (80.0-96.0); MONO # 0.3 10^3/uL (0.0-0.8); MONO % 13.6 % (2.0-8.0); NEUTROPHILS # 1.2 10^3/uL (1.5-8.5); NEUTROPHILS % 51.7 % (36.0-66.0); PLATELET COUNT, AUTOMATED 283 10^3/uL (150-450); RED BLOOD COUNT 3.91 10^6/uL (4.30-6.10); WHITE BLOOD COUNT 2.3 10^3/uL (4.0-10.0)
== END ==
LOC: M WUC 09:17
PROVIDERS: ATTEND Nurse Practitioner
DX: D72.819 Decreased white blood cell count, unspecified (principal)

== ENCOUNTER → 2024-04-03 | Outpatient (REF) | payer MEDICARE, OTHER ==
[2024-04-03 10:54] LABS: BASO % 0.6 % (0.0-1.0); EOS % 0.6 % (0.0-3.0); HEMOGLOBIN 12.9 g/dl (13.5-17.5); LYMPH # 0.9 10^3/uL (1.5-5.0); LYMPH % 28.4 % (24.0-44.0); MEAN CORPUSCULAR HEMOGLOBIN 30.9 pg (27.0-33.0); MEAN CORPUSCULAR HGB CONC 33.9 g/dl (32.0-36.5); MEAN CORPUSCULAR VOLUME 90.9 fl (80.0-96.0); MONO # 0.4 10^3/uL (0.0-0.8); MONO % 13.9 % (2.0-8.0); NEUTROPHILS # 1.7 10^3/uL (1.5-8.5); NEUTROPHILS % 56.2 % (36.0-66.0); PLATELET COUNT, AUTOMATED 253 10^3/uL (150-450); RED BLOOD COUNT 4.18 10^6/uL (4.30-6.10); WHITE BLOOD COUNT 3.1 10^3/uL (4.0-10.0)
[2024-04-03 11:27] LABS: ALBUMIN 3.6 G/DL (3.2-5.2); ALKALINE PHOSPHATASE 124 U/L (40-129); ALT/SGPT 25 U/L (7.0-40); AST/SGOT 20 U/L (<34); BILIRUBIN,TOTAL 0.6 MG/DL (0.3-1.2); BLOOD UREA NITROGEN 22 MG/DL (9-23); CALCIUM LEVEL 9.4 MG/DL (8.3-10.6); CARBON DIOXIDE LEVEL 27 MMOL/L (20-31); CHLORIDE LEVEL 105 MMOL/L (98-107); CHOLESTEROL LEVEL 101 MG/DL (<200); CHOLESTEROL RISK RATIO 3.53 (<5); CREATININE FOR GFR 1.01 MG/DL (0.70-1.30); GLOMERULAR FILTRATION RATE > 60.0 (>42); GLUCOSE, FASTING 97 MG/DL (74-106); HDL CHOLESTEROL 28.6 MG/DL (>40); LDL CHOLESTEROL 56.4 MG/DL (<100); NON-HDL-C 72.4 MG/DL; POTASSIUM SERUM 5.2 MMOL/L (3.5-5.1); SODIUM LEVEL 139 MMOL/L (136-145); TOTAL PROTEIN 7.1 G/DL (5.7-8.2); TRIGLYCERIDES LEVEL 80 MG/DL (<150)
== END ==
LOC: M LABDRAWP 10:08 → M LABWUC 10:08
PROVIDERS: ATTEND Nurse Practitioner
DX: I25.10 Atherosclerotic heart disease of native coronary artery without angina pectoris (principal); E78.5 Hyperlipidemia, unspecified; I10 Essential (primary) hypertension; Z79.82 Long term (current) use of aspirin

== ENCOUNTER → 2024-04-12 | Outpatient (CLI) | payer MEDICARE, OTHER | LOC: M WUC 08:57 | PROVIDERS: ATTEND Nurse Practitioner | DX: Z79.82 Long term (current) use of aspirin (principal); I65.23 Occlusion and stenosis of bilateral carotid arteries; R00.1 Bradycardia, unspecified ==

== ENCOUNTER → 2024-07-03 | Outpatient (REF) | payer MEDICARE, OTHER ==
[2024-07-03 11:08] LABS: ALBUMIN 3.8 G/DL (3.2-5.2); ALKALINE PHOSPHATASE 115 U/L (40-129); ALT/SGPT 24 U/L (7.0-40); AST/SGOT 22 U/L (<34); BILIRUBIN,TOTAL 0.7 MG/DL (0.3-1.2); BLOOD UREA NITROGEN 24 MG/DL (9-23); CALCIUM LEVEL 9.2 MG/DL (8.3-10.6); CARBON DIOXIDE LEVEL 27 MMOL/L (20-31); CHLORIDE LEVEL 104 MMOL/L (98-107); CHOLESTEROL LEVEL 103 MG/DL (<200); CHOLESTEROL RISK RATIO 3.37 (<5); CREATININE FOR GFR 0.95 MG/DL (0.70-1.30); GLOMERULAR FILTRATION RATE > 60.0 (>42); GLUCOSE, FASTING 98 MG/DL (74-106); HDL CHOLESTEROL 30.5 MG/DL (>40); LDL CHOLESTEROL 54.1 MG/DL (<100); NON-HDL-C 72.5 MG/DL; POTASSIUM SERUM 4.6 MMOL/L (3.5-5.1); PROSTATIC SPECIFIC AG MONITOR 0.04 NG/ML (< 4.00); SODIUM LEVEL 138 MMOL/L (136-145); TOTAL PROTEIN 7.2 G/DL (5.7-8.2); TRIGLYCERIDES LEVEL 92 MG/DL (<150)
== END ==
LOC: M LABWUC 09:54
PROVIDERS: ATTEND Family Medicine
DX: C61 Malignant neoplasm of prostate (principal); I10 Essential (primary) hypertension; E03.9 Hypothyroidism, unspecified

== ENCOUNTER → 2024-10-17 | Outpatient (CLI) | payer MEDICARE, OTHER ==
[2024-10-17 12:35] LABS: BASO % 0.9 % (0.0-1.0); EOS % 0.5 % (0.0-3.0); HEMOGLOBIN 12.4 g/dl (13.5-17.5); LYMPH # 0.8 10^3/uL (1.5-5.0); LYMPH % 35.5 % (24.0-44.0); MEAN CORPUSCULAR HEMOGLOBIN 30.2 pg (27.0-33.0); MEAN CORPUSCULAR HGB CONC 33.5 g/dl (32.0-36.5); MEAN CORPUSCULAR VOLUME 90.2 fl (80.0-96.0); MONO # 0.4 10^3/uL (0.0-0.8); NEUTROPHILS % 44.6 % (36.0-66.0); PLATELET COUNT, AUTOMATED 249 10^3/uL (150-450); WHITE BLOOD COUNT 2.1 10^3/uL (4.0-10.0)
[2024-10-17 12:43] LABS: NEUTROPHILS # 0.9 10^3/uL (1.5-8.5)
== END ==
LOC: M WUC 08:55
PROVIDERS: ATTEND Nurse Practitioner
DX: D72.819 Decreased white blood cell count, unspecified (principal)

== ENCOUNTER → 2025-03-21 | Outpatient (CLI) | payer MEDICARE, OTHER ==
[2025-03-21 13:11] LABS: BASO # 0.0 10^3/uL (0.0-0.2); BASO % 0.9 % (0.0-1.0); EOS # 0.0 10^3/uL (0.0-0.5); EOS % 0.9 % (0.0-3.0); LYMPH # 0.7 10^3/uL (1.5-5.0); LYMPH % 32.2 % (24.0-44.0); MONO # 0.3 10^3/uL (0.0-0.8); MONO % 13.3 % (2.0-8.0); NEUTROPHILS # 1.1 10^3/uL (1.5-8.5); NEUTROPHILS % 52.7 % (36.0-66.0); PLATELET COUNT, AUTOMATED 274 10^3/uL (150-450)
[2025-03-21 13:18] LABS: VITAMIN B12 LEVEL 577.0 PG/ML (211-911)
== END ==
LOC: M WUC 09:05
PROVIDERS: ATTEND Internal Medicine Hematology & Oncology
DX: D72.819 Decreased white blood cell count, unspecified (principal); D64.9 Anemia, unspecified